=== PATIENT | female | born 1975 | race Hispanic/Latino ===

== ENCOUNTER 2018-12-22 07:40 | Outpatient (CLI) | payer OTHER ==
--- NOTE | 2018-12-22 09:41 | ULT ---
PELVIC ULTRASOUND: HISTORY: Abnormal bleeding. Heavy periods. Left pelvic pain with periods x many years. TECHNIQUE: Transabdominal endovaginal imaging of the pelvis is performed. Ovaries are interrogated with hodges sc bryson, color flow, Doppler imaging, and spectral waveform analysis. FINDINGS: Uterus is identified measuring 7.6 x 5.2 x 9.9 cm. No obvious masses in the myometrium. Endometrium appears to be heterogeneous, and thickened. Diameter is 1.3 cm. Endometrium is best demonstrated o n the transabdominal images. Limited evaluation of the right ovary. Suspected right ovary measures 2.0 x 2.8 x 3.1 cm. There ha ears to be a hypoechoic focus in the right ovary measuring 1.4 x 1.3 x 1.5 cm. The possibility of a cyst is raised. The left ovary is not appreciated. No obvious masses or fluid I the left adnexa. There appear to be small nabothian cysts. There is no free fluid. OVARIAN DOPPLER: There is vascular flow to the right ovary. IMPRESSION: 1. Limited evaluation of the uterus. No obvious myometrial masses. Thickened slightly heterogeneous endometrium is noted. Given patient's history, pelvic MRI or sonohysterogram is recommended. 2. Hypoechoic focus in the right ovary which may represent a dominant/complex follicle. Followup ul trasound in 8 weeks is recommended. POS: ABRAHAM
== END 2018-12-22 07:41 | disposition home or self-care (01) ==
LOC: BICULT 07:40
PROVIDERS: ATTEND Student in an Organized Health Care Education/Training Program
DX: N93.9 Abnormal uterine and vaginal bleeding, unspecified (principal); R93.89 Abnormal findings on diagnostic imaging of other specified body structures
CPT/HCPCS: 76856

== ENCOUNTER 2019-12-21 07:38 | Day surgery (SDC) | payer OTHER ==
[2019-12-20 08:44] VITALS: BMI 25.0
[2019-12-21] MEDS ORDERED: Ketorolac Tromethamine 30 MG/ML VIAL ONE (08:39)
[2019-12-21 08:45] LABS: #Basophils 0.1 thou/uL (0.0-0.2); #Eosinphils 0.1 thou/uL (0.0-0.7); #Lymphocytes 1.7 thou/uL (1.20-3.40); #Monocytes 0.5 thou/uL (0.11-0.59); %Basophils 0.9 % (0.0-1.0); %Lymphocytes 32.5 % (21.0-51.0); %Monocytes 8.4 % (0.0-10.0); %Neutrophils 56.2 % (42.0-75.0); Hemoglobin 10.8 g/dL (12.0-16.0); Mean Corpuscular HGB CONC 31.5 g/dL (32.0-36.0); Mean Corpuscular Hemoglobin 24.8 pg (27.0-31.0); Mean Corpuscular Volume 78.8 fL (78.0-98.0); Platelet Count 258 thou/uL (130-400); RBC Distribution Width 15.3 % (11.5-14.5); Red Blood Cell (RBC) Count 4.37 mill/uL (4.20-5.40); White Blood Cell (WBC) Count 5.3 thou/uL (4.8-10.8)
[2019-12-21] MEDS ORDERED: Acetaminophen 500 MG TAB ONE (08:52)
[2019-12-21] MEDS ORDERED: Bupivacaine 0.25% HCL 30 ML VIAL ONE (08:55)
[2019-12-21] MEDS ORDERED: Lidocaine 1% w/Epinephrine 1:100K 20 ML VIAL ONE (08:55)
[2019-12-21 09:02] LABS: Anion Gap 10 mmol/L (10-20); BUN (Urea Nitrogen) 15 mg/dL (7.0-18.7); Calc. Creatinine Clearance 103 mL/min (70-130); Calcium 9.3 mg/dL (7.8-10.44); Carbon Dioxide 28 mmol/L (22-29); Chloride 104 mmol/L (98-107); Estimated GFR-MDRD 85; Glucose 98 mg/dL (70-105); Potassium 3.5 mmol/L (3.5-5.1); Sodium 138 mmol/L (136-145)
[2019-12-21] MEDS ORDERED: Fentanyl 100 MCG/2 ML VIAL ONE (10:04)
[2019-12-21] MEDS ORDERED: Midazolam HCl 2 mg/2 ml Vial ONE (11:22)
[2019-12-21] MEDS ORDERED: Ondansetron PF 4 MG/2 ML Vial ONE (13:36)
[2019-12-21] MEDS ORDERED: Dexamethasone 20 MG/5 ML VIAL ONE (13:36)
[2019-12-21] MEDS ORDERED: PROPOFOL 200 MG/20 ML VIAL ONE (13:36)
[2019-12-21] MEDS ORDERED: HYDROcodone/Acetaminophen 5/325 mg Tablet ONE (14:07)
--- NOTE | 2019-12-21 14:33 | OP ---
DATE OF PROCEDURE: 12/21/2019 PREOPERATIVE DIAGNOSIS: Right breast mass. POSTOPERATIVE DIAGNOSIS: Right breast mass. PROCEDURE PERFORMED: Ultrasound-guided needle localized right breast excisional biopsy. ANESTHESIA: General with laryngeal mask airway. INDICATIONS: The patient is a 44-year-old female. She has a hypoechoic mass at the 12 o'clock radian of her right breast. This has been biopsied revealing atypical findings, but without evidence of malignancy. Definitive excision was recommended. DESCRIPTION OF PROCEDURE: Informed consent was obtained. The patient was taken to the operating room, where general anesthesia was obtained with the patient in supine position. Right breast was prepped with ChloraPrep and draped in sterile fashion. Ultrasound was utilized to identify the lesion. It was marked in a grid-type fashion on the skin. A localizing wire was then passed in a medial to lateral fashion directly through the lesion. An incision was created, centered on the 12 o'clock radian just above the nipple-areolar complex. Dissection was carried through skin and subcutaneous tissue. Flaps were raised in all directions little less than a centimeter into the breast. The dissection was carried from behind the wire underneath the lesion obtaining appropriately wide margins in all directions and was removed intact. Ultrasound interrogation of the lesion revealed appropriate margin circumferentially. It was passed off the field as a specimen after it was tagged for orientation. Meticulous hemostasis was obtained within the wound using electrocautery. The wound was closed in layers with 3-0 and 4-0 Monocryl. Additional local anesthetic was infiltrated into the wound. Dermabond was placed externally. There were no complications. The patient tolerated the procedure well and was taken to the recovery in stable condition. Job ID: [id number]
== END 2019-12-21 15:20 | disposition home or self-care (01) ==
LOC: SDC 07:38
PROVIDERS: ATTEND Specialist
PROC: 0HBT0ZZ Excision of Right Breast, Open Approach (ICD-10-PCS; principal; 2019-12-21)
DX: D24.1 Benign neoplasm of right breast (principal); N60.81 Other benign mammary dysplasias of right breast; N60.21 Fibroadenosis of right breast; N60.11 Diffuse cystic mastopathy of right breast; I10 Essential (primary) hypertension; E78.5 Hyperlipidemia, unspecified; Z85.3 Personal history of malignant neoplasm of breast; Z79.899 Other long term (current) drug therapy
CPT/HCPCS: 80048; 85025; 88307; 88341; 88342; J0690; J1100; J1885; J2250; J2405; J2704; J3010; S0020

== ENCOUNTER 2020-12-05 10:10 | Emergency (ER) | payer OTHER, SELFPAY ==
[2020-12-05 10:40] LABS: #Basophils 0.1 thou/uL (0.0-0.2); #Lymphocytes 1.6 thou/uL (1.20-3.40); #Monocytes 0.5 thou/uL (0.11-0.59); #Neutrophils 4.7 thou/uL (1.40-6.50); %Basophils 0.9 % (0.0-1.0); %Eosinophils 0.6 % (0.0-10.0); %Lymphocytes 23.6 % (21.0-51.0); %Neutrophils 67.9 % (42.0-75.0); Hemoglobin 13.1 g/dL (12.0-16.0); Mean Corpuscular HGB CONC 33.6 g/dL (32.0-36.0); Mean Corpuscular Hemoglobin 28.6 pg (27.0-31.0); Mean Corpuscular Volume 85.3 fL (78.0-98.0); Mean Platelet Volume 8.5 fL (7.4-10.4); Platelet Count 279 thou/uL (130-400); RBC Distribution Width 13.2 % (11.5-14.5); Red Blood Cell (RBC) Count 4.57 mill/uL (4.20-5.40); White Blood Cell (WBC) Count 6.9 thou/uL (4.8-10.8)
[2020-12-05] MEDS ORDERED: Fentanyl 100 MCG/2 ML VIAL ONE (10:40)
[2020-12-05] MEDS ORDERED: Ondansetron PF 4 MG/2 ML Vial ONE (10:40)
[2020-12-05] MEDS ORDERED: Ketorolac Tromethamine 30 MG/ML VIAL ONE (10:40)
[2020-12-05 11:03] LABS: ALT (SGPT) 11 U/L (8-55); AST (SGOT) 20 U/L (5-34); Albumin 4.1 g/dL (3.5-5.0); Alkaline Phosphatase 82 U/L (40-110); Anion Gap 13 mmol/L (10-20); BUN (Urea Nitrogen) 10 mg/dL (7.0-18.7); Bilirubin, Total 0.5 mg/dL (0.2-1.2); Calc. Creatinine Clearance 0 mL/min (70-130); Calcium 8.6 mg/dL (7.8-10.44); Carbon Dioxide 25 mmol/L (22-29); Chloride 106 mmol/L (98-107); Globulin 3.6 g/dL (2.4-3.5); Glucose 100 mg/dL (70-105); Lipase 16 U/L (8-78); Potassium 3.7 mmol/L (3.5-5.1); Protein, Total 7.7 g/dL (6.0-8.3); Sodium 140 mmol/L (136-145)
[2020-12-05 11:32] LABS: BHCG - Serum Negative (NEGATIVE); Pregs Control Background? CLEAR/WHITE (CLR/WHITE); Pregs Control Bar Appear? YES (CONTROL BAR)
[2020-12-05 11:35] LABS: Bacteria/HPF None Seen HPF (None Seen); Bilirubin Negative (Negative); Blood, Urine Negative (Negative); Clarity Clear (Clear); Glucose, Urine (Dipstick) Normal (Negative); Ketone, Urine Negative (Negative); Leukocyte 75 Leu/uL (Negative); Nitrite Negative (Negative); Protein, Urine (Dipstick) Negative (Neg-Trace); RBC/HPF 0-3 HPF (0-3); Specific Gravity, Urine 1.008 (1.002-1.036); Squamous Epithelial 0-3 HPF (0-3); Urobilinogen Normal mg/dL (Less than 2); WBC/HPF 0-3 HPF (0-3)
[2020-12-05] MEDS ORDERED: Iopamidol-370 76% 500 ML 1 ML ONE (13:32)
== END 2020-12-05 12:59 | disposition home or self-care (01) ==
LOC: ERS 10:10
DX: N20.2 Calculus of kidney with calculus of ureter (principal); R11.0 Nausea
CPT/HCPCS: 36415; 74177; 80053; 81003; 81015; 83690; 84703; 85025; 96374; 96375; J1885; J2405; J3010; Q9967

== ENCOUNTER 2020-12-31 14:25 | Outpatient (CLI) | payer OTHER ==
--- NOTE | 2020-12-31 15:05 | MMO ---
Bilateral MAMMO Bilat Diag [facility]. CLINICAL HISTORY: Patient is 45 years old and is seen for diagnostic exam. The patient has no family history of breast cancer. The patient has no personal history of cancer. The patient has a history of right Explantation in December,. VIEWS: The views performed were: bilateral craniocaudal with tomosynthesis; bilateral mediolateral oblique with tomosynthesis; and bilateral mediolateral with tomosynthesis. FILMS COMPARED: The present examination has been compared to prior imaging studies performed at [facility] on 07/11/2019 and 09/22/2019, and at [facility] on 12/07/2017. This study has been interpreted with the assistance of computer-aided detection. MAMMOGRAM FINDINGS: The breasts are heterogeneously dense, which could obscure a lesion on mammography. There are post operative changes seen in the right breast. There are no suspicious masses, suspicious calcifications, or new areas of architectural distortion. IMPRESSION: THERE IS NO MAMMOGRAPHIC EVIDENCE OF MALIGNANCY. A ROUTINE FOLLOW-UP MAMMOGRAM IN 1 YEAR IS RECOMMENDED. THE RESULTS OF THIS EXAM WERE SENT TO THE PATIENT. ACR BI-RADS Category 2 - Benign finding MAMMOGRAPHY NOTE: 1. A negative mammogram report should not delay a biopsy if a dominant of clinically suspicious mass is present. 2. Approximately 10% to 15% of breast cancers are not detected by mammography. 3. Adenosis and dense breasts may obscure an underlying neoplasm. Reported by: GHASSAN LOZANO MD Electonically Signed: [id number]
== END 2020-12-31 14:26 | disposition home or self-care (01) ==
LOC: BICMAMMO 14:25
PROVIDERS: ATTEND Specialist
DX: D24.1 Benign neoplasm of right breast (principal)
CPT/HCPCS: 77066; G0279